=== PATIENT | male | born 1975 | race Caucasian/White ===

== ENCOUNTER 2017-05-10 17:54 | Emergency (ER) | payer MEDICARE, MEDICAID ==
[~2017-05-10] VITALS: Ht 188 cm; Wt 152.9 kg
[~2017-05-10 17:54] MED LIST: BETA15CR15 TOP; CLOT15CR74 TP; PROCHC RC
[2017-05-10 19:15] LABS: BASOPHILS % (AUTO) 0.3 % (0-1); EOSINOPHILS # (AUTO) 0.3 X10'3 (0-0.9); EOSINOPHILS % (AUTO) 2.7 % (0-6); HEMATOCRIT 41.8 % (42.0-52.0); LYMPHOCYTES # (AUTO) 2.5 X10'3 (1.1-4.8); LYMPHOCYTES % (AUTO) 21.8 % (21-51); MEAN CORPUSCULAR HEMOGLOBIN 26.7 PG (27.0-31.0); MEAN CORPUSCULAR HGB CONC 33.5 % (33.0-36.5); MEAN CORPUSCULAR VOLUME 79.8 FL (78-98); MEAN PLATELET VOLUME 8.1 FL (7.4-10.4); MONOCYTES # (AUTO) 0.6 X10'3 (0-0.9); MONOCYTES % (AUTO) 5.3 % (2-12); NEUTROPHILS # (AUTO) 8.1 X10'3 (1.8-7.7); NEUTROPHILS % (AUTO) 69.9 % (42-75); PLATELET COUNT 333 X10'3 (140-440); RED BLOOD COUNT 5.24 X10'6 (4.70-6.10); RED CELL DISTRIBUTION WIDTH 14.6 % (11.5-14.5); WHITE BLOOD COUNT 11.6 X10'3 (4.5-11.0)
[2017-05-10 19:30] LABS: ALANINE AMINOTRANSFERASE 45 U/L (12-78); ALBUMIN 3.6 G/DL (3.4-5.0); ALBUMIN/GLOBULIN RATIO 0.8 (1.1-1.5); ALKALINE PHOSPHATASE 111 IU/L (46-116); ANION GAP 9 (8-16); ASPARTATE AMINO TRANSFERASE 18 U/L (10-37); BILIRUBIN,TOTAL 0.2 MG/DL (0.1-1.0); BLOOD UREA NITROGEN 17 MG/DL (7-18); BUN/CREATININE RATIO 18.5 (5.4-32.0); CHLORIDE 106 MMOL/L (99-107); CREATININE 0.92 MG/DL (0.60-1.10); GLUCOSE 106 MG/DL (70-104); POTASSIUM 3.9 MMOL/L (3.5-5.1); SODIUM 140 MMOL/L (135-145); TOTAL CARBON DIOXIDE 25.4 MMOL/L (24-32); TOTAL PROTEIN 8.4 G/DL (6.4-8.2); eGFR > 90 ML/MIN
[2017-05-10] MEDS ORDERED: POLY17PO10 PO (19:58)
[2017-05-10] MEDS ORDERED: DOCU-28 PO (19:58)
[2017-05-10 20:12] VITALS: BP 130/85
[2017-05-10 20:24] LABS: OCCULT BLOOD STOOL NEGATIVE (Neg)
== END 2017-05-10 20:14 | disposition home or self-care (01) ==
LOC: ER 17:55
DX: K62.89 Other specified diseases of anus and rectum (principal); J45.909 Unspecified asthma, uncomplicated; G89.29 Other chronic pain; F12.10 Cannabis abuse, uncomplicated; Z79.899 Other long term (current) drug therapy; Z59.0 Homelessness
CPT/HCPCS: 36415; 80053; 82272; 85025; 99284

== ENCOUNTER 2017-08-04 22:09 | Emergency (ER) | payer MEDICARE, MEDICAID ==
[~2017-08-04] VITALS: Ht 188 cm; Wt 155.1 kg
[~2017-08-04 22:09] MED LIST changes: +DOCU-28 PO
[2017-08-04 22:28] VITALS: BP 132/108
[2017-08-05] MEDS ORDERED: NAPR-56 PO (00:09)
[2017-08-05] MEDS ORDERED: ketorolac tromethamine 15mg/ml inj. IM ONE (00:10)
[2017-08-05] MEDS ORDERED: orphenadrine citrate 60mg/2ml inj. IM ONE (00:15)
== END 2017-08-05 00:53 | disposition home or self-care (01) ==
LOC: ER 22:10
DX: M79.601 Pain in right arm (principal); J45.909 Unspecified asthma, uncomplicated; F12.10 Cannabis abuse, uncomplicated
CPT/HCPCS: 73080; 96372; 99284; J1885; J2360

== ENCOUNTER 2017-10-21 13:22 | Emergency (ER) | payer MEDICARE, MEDICAID ==
[~2017-10-21] VITALS: Ht 185.4 cm; Wt 130.0 kg
[2017-10-21 13:25] VITALS: BP 195/103
[2017-10-21 16:31] LABS: ALANINE AMINOTRANSFERASE 34 U/L (12-78); ALBUMIN 3.5 G/DL (3.4-5.0); ALBUMIN/GLOBULIN RATIO 0.8 (1.1-1.5); ALKALINE PHOSPHATASE 122 IU/L (46-116); ANION GAP 9 (8-16); ASPARTATE AMINO TRANSFERASE 20 U/L (10-37); BILIRUBIN,TOTAL 0.3 MG/DL (0.1-1.0); BLOOD UREA NITROGEN 14 MG/DL (7-18); BUN/CREATININE RATIO 17.1 (5.4-32.0); CALCIUM 8.6 MG/DL (8.5-10.1); CHLORIDE 104 MMOL/L (99-107); CREATININE 0.82 MG/DL (0.60-1.10); GLUCOSE 101 MG/DL (70-104); POTASSIUM 3.8 MMOL/L (3.5-5.1); SODIUM 138 MMOL/L (135-145); TOTAL CARBON DIOXIDE 25.2 MMOL/L (24-32); eGFR > 90 ML/MIN
[2017-10-21] MEDS ORDERED: IBUP-1984 PO (17:28)
== END 2017-10-21 17:35 | disposition home or self-care (01) ==
LOC: ER 13:23
DX: M54.2 Cervicalgia (principal); J45.909 Unspecified asthma, uncomplicated; G89.29 Other chronic pain; F12.90 Cannabis use, unspecified, uncomplicated; Z59.0 Homelessness
CPT/HCPCS: 36415; 70490; 80053; 99285

== ENCOUNTER 2017-11-24 14:58 | Emergency (ER) | payer MEDICARE, MEDICAID ==
[~2017-11-24] VITALS: Ht 188 cm; Wt 150.0 kg
[2017-11-24 15:23] VITALS: BP 142/96
[2017-11-24] MEDS ORDERED: VAL5T PO (16:17)
[2017-11-24] MEDS ORDERED: METH4TAB3 PO (16:17)
[2017-11-24] MEDS ORDERED: HYDR-3965 PO (16:17)
[2017-11-24] MEDS ORDERED: ONDA4TAB9 SL (16:17)
[2017-11-24] MEDS ORDERED: CYCL-1 PO (16:17)
[2017-11-24] MEDS ORDERED: dexamethasone 4mg tablet PO ONE (16:20)
== END 2017-11-24 16:40 | disposition home or self-care (01) ==
LOC: ER 14:59
DX: S39.012A Strain of muscle, fascia and tendon of lower back, initial encounter (principal); M54.41 Lumbago with sciatica, right side; E66.01 Morbid (severe) obesity due to excess calories; J45.909 Unspecified asthma, uncomplicated; G89.29 Other chronic pain; F12.90 Cannabis use, unspecified, uncomplicated; Z59.0 Homelessness; Z79.899 Other long term (current) drug therapy; X50.1XXA Overexertion from prolonged static or awkward postures, initial encounter; Y93.89 Activity, other specified; Y92.89 Other specified places as the place of occurrence of the external cause; Y99.9 Unspecified external cause status
CPT/HCPCS: 99283; J8540

== ENCOUNTER 2017-12-02 08:15 | Emergency (ER) | payer MEDICARE, MEDICAID ==
[~2017-12-02] VITALS: Ht 188 cm; Wt 160.0 kg
[~2017-12-02 08:15] MED LIST changes: +CYCL-1 PO; +HYDR-3965 PO; +METH4TAB3 PO; +ONDA4TAB9 SL; +VAL5T PO
[2017-12-02] MEDS ORDERED: ondansetron 4mg rapidly disintigrating tab PO ONE (08:50)
[2017-12-02] MEDS ORDERED: HYDROmorphone 1 mg/ml syringe IM ONE (08:50)
[2017-12-02 09:55] LABS: BASOPHILS # (AUTO) 0.2 X10'3 (0-0.2); BASOPHILS % (AUTO) 1.2 % (0-1); EOSINOPHILS # (AUTO) 0.2 X10'3 (0-0.9); EOSINOPHILS % (AUTO) 1.2 % (0-6); HEMATOCRIT 45.2 % (42.0-52.0); HEMOGLOBIN 14.8 g/dl (14.0-17.9); LYMPHOCYTES # (AUTO) 2.3 X10'3 (1.1-4.8); LYMPHOCYTES % (AUTO) 16.9 % (21-51); MEAN CORPUSCULAR HEMOGLOBIN 26.1 PG (27.0-31.0); MEAN CORPUSCULAR HGB CONC 32.9 % (33.0-36.5); MEAN CORPUSCULAR VOLUME 79.6 FL (78-98); MEAN PLATELET VOLUME 8.1 FL (7.4-10.4); MONOCYTES # (AUTO) 0.3 X10'3 (0-0.9); MONOCYTES % (AUTO) 2.3 % (2-12); NEUTROPHILS # (AUTO) 10.4 X10'3 (1.8-7.7); NEUTROPHILS % (AUTO) 78.4 % (42-75); PLATELET COUNT 331 X10'3 (140-440); RED BLOOD COUNT 5.67 X10'6 (4.70-6.10); RED CELL DISTRIBUTION WIDTH 14.3 % (11.5-14.5); WHITE BLOOD COUNT 13.4 X10'3 (4.5-11.0)
[2017-12-02 10:07] VITALS: BP 151/97
[2017-12-02 10:15] LABS: ALANINE AMINOTRANSFERASE 37 U/L (12-78); ALBUMIN 3.3 G/DL (3.4-5.0); ALBUMIN/GLOBULIN RATIO 0.8 (1.1-1.5); ALKALINE PHOSPHATASE 111 IU/L (46-116); ANION GAP 8 (8-16); ASPARTATE AMINO TRANSFERASE 15 U/L (10-37); BILIRUBIN,TOTAL 0.5 MG/DL (0.1-1.0); BLOOD UREA NITROGEN 13 MG/DL (7-18); BUN/CREATININE RATIO 15.7 (5.4-32.0); CALCIUM 8.3 MG/DL (8.5-10.1); CHLORIDE 102 MMOL/L (99-107); CREATININE 0.83 MG/DL (0.60-1.10); GLUCOSE 97 MG/DL (70-104); POTASSIUM 4.1 MMOL/L (3.5-5.1); SODIUM 138 MMOL/L (135-145); TOTAL CARBON DIOXIDE 28.4 MMOL/L (24-32); TOTAL PROTEIN 7.7 G/DL (6.4-8.2); eGFR > 90 ML/MIN
[2017-12-02 10:17] LABS: CLARITY,URINE CLEAR (Clear); COLOR,URINE YELLOW (Yellow); GLUCOSE, URINE NEGATIVE (Neg); KETONES,URINE NEGATIVE (Neg); LEUKOCYTE ESTERASE ,URINE NEGATIVE (Neg); NITRITES, URINE NEGATIVE (Neg); OCCULT BLOOD,URINE NEGATIVE (Neg); PROTEIN,URINE NEGATIVE (Neg); UROBILINOGEN,URINE 0.2 E.U/dL (0.2-1.0)
[2017-12-02 10:24] LABS: UA COLLECTION TYPE CLN CATCH MIDSTREAM
[2017-12-02] MEDS ORDERED: CYCL-1 PO (11:27)
== END 2017-12-02 11:35 | disposition home or self-care (01) ==
LOC: ER 08:15
DX: G89.29 Other chronic pain (principal); M54.5 Low back pain; J45.909 Unspecified asthma, uncomplicated; F12.90 Cannabis use, unspecified, uncomplicated; Z59.0 Homelessness; Z79.899 Other long term (current) drug therapy
CPT/HCPCS: 36415; 80053; 81003; 85025; 96372; 99284; J1170

== ENCOUNTER 2017-12-02 12:05 | Emergency (ER) | payer MEDICARE, MEDICAID ==
[~2017-12-02] VITALS: Ht 188 cm; Wt 157.1 kg
[2017-12-02 12:06] VITALS: BP 139/96
[2017-12-02] MEDS ORDERED: HYDROmorphone 1 mg/ml syringe IM ONE (16:10)
[2017-12-02] MEDS ORDERED: ondansetron 4mg rapidly disintigrating tab PO ONE (16:10)
== END 2017-12-02 17:23 | disposition home or self-care (01) ==
LOC: ER 12:05
DX: G89.29 Other chronic pain (principal); M54.5 Low back pain; J45.909 Unspecified asthma, uncomplicated; F12.90 Cannabis use, unspecified, uncomplicated; Z59.0 Homelessness; Z79.899 Other long term (current) drug therapy
CPT/HCPCS: 72131; 96372; 99284; J1170

== ENCOUNTER 2018-01-07 15:41 | Emergency (ER) | payer MEDICARE, MEDICAID ==
[~2018-01-07] VITALS: Ht 188 cm; Wt 159.0 kg
[~2018-01-07 15:41] MED LIST changes: -HYDR-3965 PO; -ONDA4TAB9 SL; -VAL5T PO
[2018-01-07 17:00] VITALS: BP 178/110
[2018-01-07] MEDS ORDERED: GABA-532 PO (17:09)
== END 2018-01-07 17:26 | disposition home or self-care (01) ==
LOC: ER 15:42
DX: M54.41 Lumbago with sciatica, right side (principal); J45.909 Unspecified asthma, uncomplicated; G89.29 Other chronic pain; F12.90 Cannabis use, unspecified, uncomplicated; Z59.0 Homelessness; Z79.899 Other long term (current) drug therapy
CPT/HCPCS: 93005; 99283

== ENCOUNTER 2018-08-08 11:40 | Emergency (ER) | payer MEDICARE, MEDICAID ==
[~2018-08-08] VITALS: Ht 188 cm; Wt 153.0 kg
[~2018-08-08 11:40] MED LIST changes: +GABA-532 PO
[2018-08-08 11:46] VITALS: BP 182/99
[2018-08-08] MEDS ORDERED: HYDR-4353 PO (13:30)
[2018-08-08] MEDS ORDERED: AMOX500C2 PO (13:30)
== END 2018-08-08 13:41 | disposition home or self-care (01) ==
LOC: ER 11:41
DX: S03.2XXA Dislocation of tooth, initial encounter (principal); K02.9 Dental caries, unspecified; J45.909 Unspecified asthma, uncomplicated; G89.29 Other chronic pain; F12.90 Cannabis use, unspecified, uncomplicated; Z59.0 Homelessness; Z79.2 Long term (current) use of antibiotics; Z79.899 Other long term (current) drug therapy; X58.XXXA Exposure to other specified factors, initial encounter; Y93.89 Activity, other specified; Y92.89 Other specified places as the place of occurrence of the external cause; Y99.8 Other external cause status
CPT/HCPCS: 99283

== ENCOUNTER 2019-01-15 12:38 | Emergency (ER) | payer MEDICARE, MEDICAID ==
[~2019-01-15] VITALS: Ht 188 cm; Wt 160.0 kg
[2019-01-15 12:50] VITALS: BP 179/107
[2019-01-15] MEDS ORDERED: LIDOcaine 5% patch TP ONE (13:40)
[2019-01-15] MEDS ORDERED: ketorolac tromethamine 15mg/ml inj. IM ONE (13:40)
[2019-01-15] MEDS ORDERED: triamcinolone acetonide 40mg/ml inj IM ONE (13:40)
== END 2019-01-15 14:24 | disposition home or self-care (01) ==
LOC: ER 12:38
DX: M54.12 Radiculopathy, cervical region (principal); M25.512 Pain in left shoulder; G89.29 Other chronic pain; J45.909 Unspecified asthma, uncomplicated; F12.90 Cannabis use, unspecified, uncomplicated; Z88.8 Allergy status to other drugs, medicaments and biological substances; Z59.0 Homelessness
CPT/HCPCS: 73030; 96372; 99283; J1885; J3301

== ENCOUNTER 2019-02-17 16:38 | Emergency (ER) | payer MEDICARE, MEDICAID ==
[~2019-02-17] VITALS: Ht 188 cm; Wt 159.1 kg
[2019-02-17 16:44] VITALS: BP 153/101
[2019-02-17] MEDS ORDERED: ibuprofen tablet 400 MG TABLET PO ONE (17:35)
[2019-02-17] MEDS ORDERED: IBUP-1984 PO (18:23)
== END 2019-02-17 18:49 | disposition home or self-care (01) ==
LOC: ER 16:39
DX: M25.562 Pain in left knee (principal); J45.909 Unspecified asthma, uncomplicated; G89.29 Other chronic pain; F10.99 Alcohol use, unspecified with unspecified alcohol-induced disorder; F12.90 Cannabis use, unspecified, uncomplicated; Z59.0 Homelessness; Z79.899 Other long term (current) drug therapy; Y90.9 Presence of alcohol in blood, level not specified
CPT/HCPCS: 73564; 99283

== ENCOUNTER 2019-03-23 16:19 | Emergency (ER) | payer MEDICARE, MEDICAID ==
[~2019-03-23] VITALS: Ht 188 cm; Wt 157.0 kg
[2019-03-23 18:34] VITALS: BP 154/95
== END 2019-03-23 18:20 | disposition home or self-care (01) ==
LOC: ER 16:19
DX: M79.602 Pain in left arm (principal); M79.601 Pain in right arm; J45.909 Unspecified asthma, uncomplicated; G89.29 Other chronic pain; F12.90 Cannabis use, unspecified, uncomplicated; F10.99 Alcohol use, unspecified with unspecified alcohol-induced disorder; Z59.0 Homelessness; Z79.899 Other long term (current) drug therapy; Y90.9 Presence of alcohol in blood, level not specified
CPT/HCPCS: 99281

== ENCOUNTER 2019-05-29 17:19 | Emergency (ER) | payer MEDICARE, MEDICAID ==
[~2019-05-29] VITALS: Ht 188 cm; Wt 165.0 kg
[2019-05-29 17:34] VITALS: BP 166/97
[2019-05-29] MEDS ORDERED: LORA10CA PO (19:40)
[2019-05-29] MEDS ORDERED: FLUT16SP2 BOTHNARES (19:40)
== END 2019-05-29 19:50 | disposition home or self-care (01) ==
LOC: ER 17:19
DX: J34.89 Other specified disorders of nose and nasal sinuses (principal); F12.90 Cannabis use, unspecified, uncomplicated; Z59.0 Homelessness; Z79.899 Other long term (current) drug therapy
CPT/HCPCS: 99282

== ENCOUNTER 2019-08-03 14:19 | Emergency (ER) | payer MEDICARE, MEDICAID ==
[~2019-08-03] VITALS: Ht 188 cm; Wt 159.1 kg
[~2019-08-03 14:19] MED LIST changes: +FLUT16SP2 BOTHNARES; +LORA10CA PO
--- NOTE | 2019-08-03 16:28 | NUR ---
Pt is sitting in bed, playing on his phone. NAD. Respirations unlabored.
[2019-08-03 16:39] VITALS: BP 137/101
== END 2019-08-03 17:38 | disposition home or self-care (01) ==
LOC: ER 14:19
DX: Z13.9 Encounter for screening, unspecified (principal); R06.02 Shortness of breath; J45.909 Unspecified asthma, uncomplicated; G89.29 Other chronic pain; F12.90 Cannabis use, unspecified, uncomplicated; Z72.89 Other problems related to lifestyle; Z59.0 Homelessness; Z88.5 Allergy status to narcotic agent; Z79.2 Long term (current) use of antibiotics; Z79.899 Other long term (current) drug therapy
CPT/HCPCS: 71045; 93005; 99283

== ENCOUNTER 2019-08-14 11:46 | Emergency (ER) | payer MEDICARE, MEDICAID ==
[~2019-08-14] VITALS: Ht 188 cm; Wt 166.4 kg
[2019-08-14 12:18] VITALS: BP 161/102
[2019-08-14] MEDS ORDERED: acetaminophen w/codeine (30MG) #3 tablet PO ONE (14:45)
[2019-08-14] MEDS ORDERED: naproxen sodium 220mg tablet PO SCH (14:45)
[2019-08-14] MEDS ORDERED: NAPR-56 PO (14:56)
== END 2019-08-14 16:00 | disposition home or self-care (01) ==
LOC: ER 11:47
DX: R51 Headache (principal); J45.909 Unspecified asthma, uncomplicated; G89.29 Other chronic pain; F12.90 Cannabis use, unspecified, uncomplicated; Z72.89 Other problems related to lifestyle; Z59.0 Homelessness; Z88.5 Allergy status to narcotic agent; Z79.899 Other long term (current) drug therapy
CPT/HCPCS: 70450; 99284

== ENCOUNTER 2019-09-01 16:37 | Emergency (ER) | payer MEDICARE, MEDICAID ==
[~2019-09-01] VITALS: Ht 188 cm; Wt 159.1 kg
[~2019-09-01 16:37] MED LIST changes: +NAPR-56 PO
[2019-09-01 17:51] LABS: BASOPHILS # (AUTO) 0.1 X10'3 (0-0.2); BASOPHILS % (AUTO) 0.7 % (0-1); EOSINOPHILS # (AUTO) 0.4 X10'3 (0-0.9); EOSINOPHILS % (AUTO) 2.9 % (0-6); HEMATOCRIT 39.1 % (42.0-52.0); HEMOGLOBIN 12.8 g/dl (14.0-17.9); LYMPHOCYTES # (AUTO) 2.5 X10'3 (1.1-4.8); LYMPHOCYTES % (AUTO) 20.1 % (21-51); MEAN CORPUSCULAR HEMOGLOBIN 26.1 PG (27.0-31.0); MEAN CORPUSCULAR HGB CONC 32.7 g/dL (33.0-36.5); MEAN CORPUSCULAR VOLUME 80.1 FL (78-98); MEAN PLATELET VOLUME 7.8 FL (7.4-10.4); MONOCYTES # (AUTO) 0.7 X10'3 (0-0.9); MONOCYTES % (AUTO) 5.5 % (2-12); NEUTROPHILS # (AUTO) 8.6 X10'3 (1.8-7.7); NEUTROPHILS % (AUTO) 70.8 % (42-75); PLATELET COUNT 316 X10'3 (140-440); RED BLOOD COUNT 4.89 X10'6 (4.70-6.10); RED CELL DISTRIBUTION WIDTH 14.6 % (11.5-14.5); WHITE BLOOD COUNT 12.2 X10'3 (4.5-11.0)
[2019-09-01 18:01] LABS: ALANINE AMINOTRANSFERASE 36 U/L (12-78); ALBUMIN 3.3 G/DL (3.4-5.0); ALBUMIN/GLOBULIN RATIO 0.8 (1.1-1.5); ALKALINE PHOSPHATASE 105 IU/L (46-116); ANION GAP 10 (8-16); ASPARTATE AMINO TRANSFERASE 22 U/L (10-37); BILIRUBIN,TOTAL 0.2 MG/DL (0.1-1.0); BLOOD UREA NITROGEN 10 MG/DL (7-18); BUN/CREATININE RATIO 8.6 (5.4-32.0); CALCIUM 8.4 MG/DL (8.5-10.1); CHLORIDE 105 MMOL/L (99-107); CREATININE 1.16 MG/DL (0.60-1.10); GLUCOSE 95 MG/DL (70-104); SODIUM 140 MMOL/L (135-145); TOTAL CARBON DIOXIDE 25.4 MMOL/L (24-32); TOTAL PROTEIN 7.6 G/DL (6.4-8.2); eGFR 69 ML/MIN
[2019-09-01 18:07] LABS: MAGNESIUM 1.9 MG/DL (1.5-2.4)
[2019-09-01 18:36] VITALS: BP 162/90
== END 2019-09-01 18:39 | disposition home or self-care (01) ==
LOC: ER 16:39
DX: R06.02 Shortness of breath (principal); J45.909 Unspecified asthma, uncomplicated; G89.29 Other chronic pain; F12.90 Cannabis use, unspecified, uncomplicated; Z72.89 Other problems related to lifestyle; Z87.891 Personal history of nicotine dependence; Z88.8 Allergy status to other drugs, medicaments and biological substances; Z79.899 Other long term (current) drug therapy
CPT/HCPCS: 36415; 71045; 80053; 83735; 83880; 84484; 85025; 85379; 93005; 99285

== ENCOUNTER 2019-09-17 03:21 | Emergency (ER) | payer MEDICARE, MEDICAID ==
[~2019-09-17] VITALS: Ht 188 cm; Wt 162.0 kg
[~2019-09-17 03:21] MED LIST changes: -NAPR-56 PO
[2019-09-17] MEDS ORDERED: furosemide 10 MG/1 ML 10ml inj IV ONE (03:40)
[2019-09-17] MEDS ORDERED: nitroGLYCERIN 0.4mg SUBLingual tab SL PRN (03:40)
--- NOTE | 2019-09-17 03:50 | NUR ---
GAVE 20MG LASIX- UNABLE TO DOCUMENT ON eMAR D/T K+ STILL BEING RAN AT LAB. VERIFIED DOSE WITH BEE LACKEY.
[2019-09-17 04:01] LABS: BASOPHILS # (AUTO) 0.1 X10'3 (0-0.2); BASOPHILS % (AUTO) 0.5 % (0-1); EOSINOPHILS # (AUTO) 0.4 X10'3 (0-0.9); EOSINOPHILS % (AUTO) 3.3 % (0-6); HEMATOCRIT 40.7 % (42.0-52.0); HEMOGLOBIN 13.1 g/dl (14.0-17.9); LYMPHOCYTES # (AUTO) 2.8 X10'3 (1.1-4.8); LYMPHOCYTES % (AUTO) 23.7 % (21-51); MEAN CORPUSCULAR HGB CONC 32.3 g/dL (33.0-36.5); MEAN CORPUSCULAR VOLUME 80.4 FL (78-98); MEAN PLATELET VOLUME 7.7 FL (7.4-10.4); MONOCYTES # (AUTO) 0.7 X10'3 (0-0.9); NEUTROPHILS % (AUTO) 66.5 % (42-75); PLATELET COUNT 343 X10'3 (140-440); RED BLOOD COUNT 5.06 X10'6 (4.70-6.10); RED CELL DISTRIBUTION WIDTH 14.7 % (11.5-14.5)
[2019-09-17 04:22] LABS: D-DIMER 0.26 MG/L FEU (0-0.50)
[2019-09-17 04:27] LABS: ALANINE AMINOTRANSFERASE 43 U/L (12-78); ALBUMIN 3.2 G/DL (3.4-5.0); ALBUMIN/GLOBULIN RATIO 0.7 (1.1-1.5); ALKALINE PHOSPHATASE 106 IU/L (46-116); ANION GAP 9 (8-16); ASPARTATE AMINO TRANSFERASE 27 U/L (10-37); BILIRUBIN,TOTAL 0.2 MG/DL (0.1-1.0); BLOOD UREA NITROGEN 15 MG/DL (7-18); BUN/CREATININE RATIO 15.3 (5.4-32.0); CALCIUM 8.6 MG/DL (8.5-10.1); CHLORIDE 103 MMOL/L (99-107); CREATININE 0.98 MG/DL (0.60-1.10); GLUCOSE 145 MG/DL (70-104); POTASSIUM 3.8 MMOL/L (3.5-5.1); SODIUM 138 MMOL/L (135-145); TOTAL CARBON DIOXIDE 26.1 MMOL/L (24-32); TOTAL PROTEIN 7.7 G/DL (6.4-8.2); eGFR 84 ML/MIN
--- NOTE | 2019-09-17 04:44 | NUR ---
OHLHALIE FORTUNE UPDATED ON PT'S CURRENT BP OF 127/77 & WBC COUNT OF 12. WILL CONTINUE TO MONITOR
[2019-09-17] MEDS ORDERED: ipratropium/albuterol 3ml nebule NEB ONE (05:10)
[2019-09-17] MEDS ORDERED: ALBU8.5H8 IH (06:28)
[2019-09-17] MEDS ORDERED: DOXY100C43 PO (06:28)
[2019-09-17 06:52] VITALS: BP 121/83
== END 2019-09-17 06:54 | disposition home or self-care (01) ==
LOC: ER 03:21
DX: R06.00 Dyspnea, unspecified (principal); J45.909 Unspecified asthma, uncomplicated; G89.29 Other chronic pain; F17.210 Nicotine dependence, cigarettes, uncomplicated; M79.89 Other specified soft tissue disorders; F12.90 Cannabis use, unspecified, uncomplicated; R06.02 Shortness of breath; Z72.89 Other problems related to lifestyle; Z88.5 Allergy status to narcotic agent; Z79.899 Other long term (current) drug therapy
CPT/HCPCS: 36415; 71045; 80053; 83880; 84484; 85025; 85379; 93005; 94640; 96374; 99285; J1940; 94760

== ENCOUNTER 2019-10-10 17:45 | Emergency (ER) | payer MEDICARE, MEDICAID ==
[~2019-10-10] VITALS: Ht 188 cm; Wt 175.0 kg
[~2019-10-10 17:45] MED LIST changes: +ALBU8.5H8 IH
[2019-10-10] MEDS ORDERED: LORazepam 2 mg/ml vial IV ONE (18:15)
[2019-10-10] MEDS ORDERED: ipratropium/albuterol 3ml nebule NEB ONE (18:15)
[2019-10-10 18:41] LABS: BASOPHILS % (AUTO) 0.2 % (0-1); EOSINOPHILS # (AUTO) 0.4 X10'3 (0-0.9); EOSINOPHILS % (AUTO) 3.2 % (0-6); HEMATOCRIT 40.5 % (42.0-52.0); HEMOGLOBIN 13.2 g/dl (14.0-17.9); LYMPHOCYTES # (AUTO) 2.8 X10'3 (1.1-4.8); LYMPHOCYTES % (AUTO) 24.8 % (21-51); MEAN CORPUSCULAR HGB CONC 32.5 g/dL (33.0-36.5); MEAN PLATELET VOLUME 7.7 FL (7.4-10.4); MONOCYTES # (AUTO) 0.8 X10'3 (0-0.9); MONOCYTES % (AUTO) 6.9 % (2-12); NEUTROPHILS # (AUTO) 7.4 X10'3 (1.8-7.7); NEUTROPHILS % (AUTO) 64.9 % (42-75); PLATELET COUNT 321 X10'3 (140-440); RED BLOOD COUNT 5.06 X10'6 (4.70-6.10); RED CELL DISTRIBUTION WIDTH 14.8 % (11.5-14.5); WHITE BLOOD COUNT 11.3 X10'3 (4.5-11.0)
[2019-10-10 18:57] LABS: ALANINE AMINOTRANSFERASE 35 U/L (12-78); ALBUMIN 3.3 G/DL (3.4-5.0); ALBUMIN/GLOBULIN RATIO 0.7 (1.1-1.5); ALKALINE PHOSPHATASE 111 IU/L (46-116); ANION GAP 12 (8-16); ASPARTATE AMINO TRANSFERASE 21 U/L (10-37); BILIRUBIN,TOTAL 0.2 MG/DL (0.1-1.0); BLOOD UREA NITROGEN 10 MG/DL (7-18); BUN/CREATININE RATIO 11.2 (5.4-32.0); CALCIUM 8.4 MG/DL (8.5-10.1); CHLORIDE 104 MMOL/L (99-107); CREATININE 0.89 MG/DL (0.60-1.10); GLUCOSE 153 MG/DL (70-104); POTASSIUM 3.8 MMOL/L (3.5-5.1); SODIUM 139 MMOL/L (135-145); TOTAL CARBON DIOXIDE 23.5 MMOL/L (24-32); TOTAL PROTEIN 7.8 G/DL (6.4-8.2); eGFR > 90 ML/MIN
[2019-10-10] MEDS: metoprolol tartrate 1mg/ml inj IV ONE ×2 (20:14→20:20)
[2019-10-10 20:16] VITALS: BP_DIAS 83
[2019-10-10 20:20] VITALS: BP_SYST 163
== END 2019-10-10 20:28 | disposition home or self-care (01) ==
LOC: ER 17:46
DX: I10 Essential (primary) hypertension (principal); F41.9 Anxiety disorder, unspecified; R60.0 Localized edema; J45.909 Unspecified asthma, uncomplicated; G89.29 Other chronic pain; F12.90 Cannabis use, unspecified, uncomplicated; Z72.89 Other problems related to lifestyle; Z88.5 Allergy status to narcotic agent; Z79.2 Long term (current) use of antibiotics; Z79.899 Other long term (current) drug therapy
CPT/HCPCS: 36415; 71045; 80053; 83880; 84484; 85025; 93005; 94640; 96374; 99285; J2060; 94760; J3490

== ENCOUNTER 2019-12-03 12:36 | Emergency (ER) | payer MEDICARE, MEDICAID ==
[~2019-12-03] VITALS: Ht 188 cm; Wt 173.0 kg
[2019-12-03 13:02] VITALS: BP 140/83
[2019-12-03] MEDS ORDERED: CLOT45CR32 TOP (14:57)
== END 2019-12-03 15:12 | disposition home or self-care (01) ==
LOC: ER 12:37
DX: B35.6 Tinea cruris (principal); J45.909 Unspecified asthma, uncomplicated; G89.29 Other chronic pain; F12.90 Cannabis use, unspecified, uncomplicated; Z72.89 Other problems related to lifestyle; Z88.5 Allergy status to narcotic agent; Z79.899 Other long term (current) drug therapy
CPT/HCPCS: 99282

== ENCOUNTER 2020-01-05 10:09 | Emergency (ER) | payer MEDICARE, MEDICAID ==
[~2020-01-05] VITALS: Ht 185.4 cm; Wt 172.1 kg
[~2020-01-05 10:09] MED LIST changes: +CLOT45CR32 TOP
[2020-01-05 10:16] VITALS: BP 188/102
[2020-01-05] MEDS ORDERED: CLOT15CR73 TP (10:46)
== END 2020-01-05 11:03 | disposition home or self-care (01) ==
LOC: ER 10:09
DX: B35.6 Tinea cruris (principal); J45.909 Unspecified asthma, uncomplicated; G89.29 Other chronic pain; M54.9 Dorsalgia, unspecified; F12.10 Cannabis abuse, uncomplicated; Z88.5 Allergy status to narcotic agent; Z79.899 Other long term (current) drug therapy
CPT/HCPCS: 99282

== ENCOUNTER 2020-05-15 16:13 | Emergency (ER) | payer MEDICARE, MEDICAID ==
[~2020-05-15] VITALS: Ht 188 cm; Wt 161.2 kg
[~2020-05-15 16:13] MED LIST changes: +CLOT15CR73 TP
[2020-05-15 16:14] VITALS: BP 170/101
[2020-05-15] MEDS ORDERED: AMOX-422 PO (17:42)
[2020-05-15] MEDS ORDERED: IBUP-1984 PO (17:42)
== END 2020-05-15 18:05 | disposition home or self-care (01) ==
LOC: ER 16:13
DX: H66.92 Otitis media, unspecified, left ear (principal); J45.909 Unspecified asthma, uncomplicated; G89.29 Other chronic pain; F12.90 Cannabis use, unspecified, uncomplicated; Z72.89 Other problems related to lifestyle; Z88.5 Allergy status to narcotic agent; Z79.2 Long term (current) use of antibiotics; Z79.899 Other long term (current) drug therapy
CPT/HCPCS: 99283

== ENCOUNTER 2020-05-21 15:27 | Emergency (ER) | payer MEDICARE, MEDICAID ==
[~2020-05-21] VITALS: Ht 188 cm; Wt 172.7 kg
[~2020-05-21 15:27] MED LIST changes: +AMOX-422 PO; +IBUP-1984 PO
[2020-05-21 15:36] VITALS: BP 154/92
[2020-05-21] MEDS ORDERED: FLUT16SP2 BOTHNARES (16:30)
== END 2020-05-21 17:11 | disposition home or self-care (01) ==
LOC: ER 15:28
DX: H92.03 Otalgia, bilateral (principal); J45.909 Unspecified asthma, uncomplicated; G89.29 Other chronic pain; F12.90 Cannabis use, unspecified, uncomplicated; Z72.89 Other problems related to lifestyle; Z88.5 Allergy status to narcotic agent; Z79.2 Long term (current) use of antibiotics; Z79.899 Other long term (current) drug therapy
CPT/HCPCS: 99283

== ENCOUNTER 2020-06-01 16:20 | Emergency (ER) | payer MEDICARE, MEDICAID ==
[~2020-06-01] VITALS: Ht 188 cm; Wt 172.7 kg
[~2020-06-01 16:20] MED LIST changes: -AMOX-422 PO; -IBUP-1984 PO
[2020-06-01 16:30] VITALS: BP 184/91
[2020-06-01] MEDS ORDERED: PENI250T2 PO (18:48)
[2020-06-01] MEDS ORDERED: LIDO20SO16 PO (18:48)
== END 2020-06-01 19:16 | disposition home or self-care (01) ==
LOC: ER 16:21
DX: S02.5XXA Fracture of tooth (traumatic), initial encounter for closed fracture (principal); J45.909 Unspecified asthma, uncomplicated; G89.29 Other chronic pain; F12.90 Cannabis use, unspecified, uncomplicated; Z72.89 Other problems related to lifestyle; Z88.5 Allergy status to narcotic agent; Z79.899 Other long term (current) drug therapy; X58.XXXA Exposure to other specified factors, initial encounter; Y93.89 Activity, other specified; Y92.89 Other specified places as the place of occurrence of the external cause; Y99.8 Other external cause status
CPT/HCPCS: 99283

== ENCOUNTER 2020-09-04 08:25 | Emergency (ER) | payer MEDICARE, MEDICAID ==
[~2020-09-04] VITALS: Ht 188 cm; Wt 178.3 kg
[~2020-09-04 08:25] MED LIST changes: +LIDO20SO16 PO
[2020-09-04 08:34] VITALS: BP 124/76
[2020-09-04 09:52] LABS: BASOPHILS # (AUTO) 0.1 X10'3 (0-0.2); BASOPHILS % (AUTO) 0.6 % (0-1); EOSINOPHILS # (AUTO) 0.3 X10'3 (0-0.9); EOSINOPHILS % (AUTO) 2.6 % (0-6); HEMATOCRIT 40.6 % (42.0-52.0); LYMPHOCYTES # (AUTO) 1.7 X10'3 (1.1-4.8); LYMPHOCYTES % (AUTO) 15.8 % (21-51); MEAN CORPUSCULAR HEMOGLOBIN 25.2 PG (27.0-31.0); MEAN CORPUSCULAR VOLUME 78.6 FL (78-98); MEAN PLATELET VOLUME 8.4 FL (7.4-10.4); MONOCYTES # (AUTO) 0.6 X10'3 (0-0.9); MONOCYTES % (AUTO) 5.3 % (2-12); NEUTROPHILS # (AUTO) 8.1 X10'3 (1.8-7.7); NEUTROPHILS % (AUTO) 75.7 % (42-75); PLATELET COUNT 288 X10'3 (140-440); RED BLOOD COUNT 5.17 X10'6 (4.70-6.10); RED CELL DISTRIBUTION WIDTH 16.1 % (11.5-14.5); WHITE BLOOD COUNT 10.7 X10'3 (4.5-11.0)
[2020-09-04 10:26] LABS: ALANINE AMINOTRANSFERASE 49 U/L (12-78); ALBUMIN 2.9 G/DL (3.4-5.0); ALBUMIN/GLOBULIN RATIO 0.6 (1.1-1.5); ALKALINE PHOSPHATASE 111 IU/L (46-116); ANION GAP 12 (8-16); ASPARTATE AMINO TRANSFERASE 23 U/L (10-37); BILIRUBIN,TOTAL 0.3 MG/DL (0.1-1.0); BLOOD UREA NITROGEN 12 MG/DL (7-18); BUN/CREATININE RATIO 12.4 (5.4-32.0); CALCIUM 8.7 MG/DL (8.5-10.1); CHLORIDE 101 MMOL/L (99-107); CREATININE 0.97 MG/DL (0.60-1.10); GLUCOSE 336 MG/DL (70-104); SODIUM 137 MMOL/L (135-145); TOTAL CARBON DIOXIDE 24.2 MMOL/L (24-32); TOTAL PROTEIN 7.5 G/DL (6.4-8.2); eGFR 85 ML/MIN
[2020-09-04 10:32] LABS: POTASSIUM 3.8 MMOL/L (3.5-5.1)
== END 2020-09-04 10:55 | disposition home or self-care (01) ==
LOC: ER 08:25
DX: R06.02 Shortness of breath (principal); R61 Generalized hyperhidrosis; J45.909 Unspecified asthma, uncomplicated; G89.29 Other chronic pain; F12.90 Cannabis use, unspecified, uncomplicated; Z72.89 Other problems related to lifestyle; Z79.899 Other long term (current) drug therapy; Z88.6 Allergy status to analgesic agent
CPT/HCPCS: 36415; 71045; 80053; 83880; 84484; 85025; 93005; 99285

== ENCOUNTER 2021-01-21 21:14 | Emergency (ER) | payer MEDICARE, MEDICAID ==
[~2021-01-21] VITALS: Ht 188 cm; Wt 180.0 kg
[~2021-01-21 21:14] MED LIST changes: +ALBU8.5H17 IH; -ALBU8.5H8 IH
[2021-01-21] MEDS ORDERED: LIDOcaine Viscous 15ml cup MM ONE (22:35)
[2021-01-21] MEDS ORDERED: mag hydrox/Alum hydrox/simeth 30ml oral suspension PO ONE (22:35)
[2021-01-21 22:55] LABS: BASOPHILS # (AUTO) 0.1 X10'3 (0-0.2); BASOPHILS % (AUTO) 1.1 % (0-1); EOSINOPHILS # (AUTO) 0.4 X10'3 (0-0.9); EOSINOPHILS % (AUTO) 3.2 % (0-6); HEMATOCRIT 38.3 % (42.0-52.0); HEMOGLOBIN 12.4 g/dl (14.0-17.9); LYMPHOCYTES # (AUTO) 2.4 X10'3 (1.1-4.8); LYMPHOCYTES % (AUTO) 20.1 % (21-51); MEAN CORPUSCULAR HEMOGLOBIN 25.1 PG (27.0-31.0); MEAN CORPUSCULAR HGB CONC 32.3 g/dL (33.0-36.5); MEAN CORPUSCULAR VOLUME 77.7 FL (78-98); MEAN PLATELET VOLUME 8.1 FL (7.4-10.4); MONOCYTES # (AUTO) 0.8 X10'3 (0-0.9); MONOCYTES % (AUTO) 6.8 % (2-12); NEUTROPHILS # (AUTO) 8.1 X10'3 (1.8-7.7); NEUTROPHILS % (AUTO) 68.8 % (42-75); PLATELET COUNT 313 X10'3 (140-440); RED BLOOD COUNT 4.93 X10'6 (4.70-6.10); RED CELL DISTRIBUTION WIDTH 16.3 % (11.5-14.5); WHITE BLOOD COUNT 11.7 X10'3 (4.5-11.0)
[2021-01-21 23:13] LABS: ALANINE AMINOTRANSFERASE 60 U/L (12-78); ALBUMIN 3.2 G/DL (3.4-5.0); ALBUMIN/GLOBULIN RATIO 0.7 (1.1-1.5); ALKALINE PHOSPHATASE 113 IU/L (46-116); ANION GAP 8 (8-16); ASPARTATE AMINO TRANSFERASE 25 U/L (10-37); BILIRUBIN,TOTAL 0.2 MG/DL (0.1-1.0); BLOOD UREA NITROGEN 16 MG/DL (7-18); CALCIUM 8.5 MG/DL (8.5-10.1); CHLORIDE 102 MMOL/L (99-107); GLUCOSE 184 MG/DL (70-104); SODIUM 138 MMOL/L (135-145); TOTAL CARBON DIOXIDE 27.6 MMOL/L (24-32); eGFR 82 ML/MIN
[2021-01-21 23:14] LABS: BILIRUBIN,DIRECT < 0.1 MG/DL (0-0.3); LIPASE 82 U/L (73-393)
[2021-01-22] MEDS ORDERED: OMEP40CA21 PO (00:50)
[2021-01-22] MEDS ORDERED: SUCR1TAB PO (00:50)
[2021-01-22 01:01] VITALS: BP 166/101
== END 2021-01-22 01:24 | disposition home or self-care (01) ==
LOC: ER 21:15
DX: R10.84 Generalized abdominal pain (principal); R07.89 Other chest pain; R11.0 Nausea; R06.02 Shortness of breath; G89.29 Other chronic pain; J45.909 Unspecified asthma, uncomplicated; F12.90 Cannabis use, unspecified, uncomplicated; Z72.89 Other problems related to lifestyle; Z86.2 Personal history of diseases of the blood and blood-forming organs and certain disorders involving the immune mechanism; Z88.5 Allergy status to narcotic agent; Z79.899 Other long term (current) drug therapy
CPT/HCPCS: 36415; 71045; 74176; 80048; 80076; 83690; 84484; 85025; 93005; 99285

== ENCOUNTER 2021-05-11 09:39 | Emergency (ER) | payer MEDICARE, MEDICAID ==
[~2021-05-11] VITALS: Ht 188 cm; Wt 180.0 kg
[~2021-05-11 09:39] MED LIST changes: +SUCR1TAB PO
[2021-05-11 10:37] LABS: BASOPHILS # (AUTO) 0.1 X10'3 (0-0.2); BASOPHILS % (AUTO) 0.6 % (0-1); EOSINOPHILS # (AUTO) 0.3 X10'3 (0-0.9); EOSINOPHILS % (AUTO) 2.9 % (0-6); HEMATOCRIT 38.3 % (42.0-52.0); HEMOGLOBIN 12.4 g/dl (14.0-17.9); LYMPHOCYTES # (AUTO) 2.1 X10'3 (1.1-4.8); LYMPHOCYTES % (AUTO) 18.1 % (21-51); MEAN CORPUSCULAR HEMOGLOBIN 25.1 PG (27.0-31.0); MEAN CORPUSCULAR HGB CONC 32.4 g/dL (33.0-36.5); MEAN CORPUSCULAR VOLUME 77.6 FL (78-98); MEAN PLATELET VOLUME 8.2 FL (7.4-10.4); MONOCYTES # (AUTO) 0.7 X10'3 (0-0.9); MONOCYTES % (AUTO) 6.1 % (2-12); NEUTROPHILS # (AUTO) 8.4 X10'3 (1.8-7.7); NEUTROPHILS % (AUTO) 72.3 % (42-75); PLATELET COUNT 324 X10'3 (140-440); RED BLOOD COUNT 4.94 X10'6 (4.70-6.10); WHITE BLOOD COUNT 11.6 X10'3 (4.5-11.0)
[2021-05-11 10:51] LABS: ALANINE AMINOTRANSFERASE 34 U/L (12-78); ALBUMIN 3.2 G/DL (3.4-5.0); ALBUMIN/GLOBULIN RATIO 0.7 (1.1-1.5); ALKALINE PHOSPHATASE 122 IU/L (46-116); ANION GAP 6 (8-16); ASPARTATE AMINO TRANSFERASE 19 U/L (10-37); BILIRUBIN,TOTAL 0.3 MG/DL (0.1-1.0); BLOOD UREA NITROGEN 14 MG/DL (7-18); BUN/CREATININE RATIO 19.4 (5.4-32.0); CALCIUM 8.2 MG/DL (8.5-10.1); CHLORIDE 105 MMOL/L (99-107); CREATININE 0.72 MG/DL (0.60-1.10); GLUCOSE 214 MG/DL (70-104); SODIUM 139 MMOL/L (135-145); TOTAL CARBON DIOXIDE 28.4 MMOL/L (24-32); TOTAL PROTEIN 8.1 G/DL (6.4-8.2); eGFR > 90 ML/MIN
[2021-05-11] MEDS ORDERED: furosemide 10 MG/1 ML 10ml inj IV ONE (11:10)
[2021-05-11 12:30] VITALS: BP 150/94
== END 2021-05-11 12:32 | disposition home or self-care (01) ==
LOC: ER 09:39
DX: R60.0 Localized edema (principal); M62.81 Muscle weakness (generalized); I10 Essential (primary) hypertension; F12.90 Cannabis use, unspecified, uncomplicated; Z98.890 Other specified postprocedural states; Z72.89 Other problems related to lifestyle; Z88.5 Allergy status to narcotic agent
CPT/HCPCS: 36415; 71045; 80053; 83880; 85025; 96374; 99284; J1940

== ENCOUNTER 2022-01-09 12:59 | Emergency (ER) | payer MEDICARE, MEDICAID ==
[~2022-01-09] VITALS: Ht 188 cm; Wt 170.0 kg
[2022-01-09 15:05] LABS: BASOPHILS # (AUTO) 0.1 X10'3 (0-0.2); BASOPHILS % (AUTO) 0.4 % (0-1); EOSINOPHILS # (AUTO) 0.1 X10'3 (0-0.9); EOSINOPHILS % (AUTO) 0.7 % (0-6); HEMATOCRIT 40.7 % (42.0-52.0); HEMOGLOBIN 13.3 g/dl (14.0-17.9); LYMPHOCYTES # (AUTO) 1.6 X10'3 (1.1-4.8); LYMPHOCYTES % (AUTO) 11.1 % (21-51); MEAN CORPUSCULAR HEMOGLOBIN 25.1 PG (27.0-31.0); MEAN CORPUSCULAR HGB CONC 32.8 g/dL (33.0-36.5); MEAN CORPUSCULAR VOLUME 76.7 FL (78-98); MEAN PLATELET VOLUME 7.8 FL (7.4-10.4); MONOCYTES # (AUTO) 1.1 X10'3 (0-0.9); MONOCYTES % (AUTO) 7.3 % (2-12); NEUTROPHILS # (AUTO) 11.6 X10'3 (1.8-7.7); NEUTROPHILS % (AUTO) 80.5 % (42-75); PLATELET COUNT 340 X10'3 (140-440); RED CELL DISTRIBUTION WIDTH 16.8 % (11.5-14.5); WHITE BLOOD COUNT 14.5 X10'3 (4.5-11.0)
[2022-01-09 15:18] LABS: ALANINE AMINOTRANSFERASE 36 U/L (12-78); ALBUMIN 3.6 G/DL (3.4-5.0); ALBUMIN/GLOBULIN RATIO 0.7 (1.1-1.5); ALKALINE PHOSPHATASE 124 IU/L (46-116); AMYLASE 18 U/L (25-115); ANION GAP 9 (8-16); ASPARTATE AMINO TRANSFERASE 23 U/L (10-37); BILIRUBIN,TOTAL 0.6 MG/DL (0.1-1.0); BLOOD UREA NITROGEN 13 MG/DL (7-18); BUN/CREATININE RATIO 9.8 (5.4-32.0); CHLORIDE 103 MMOL/L (99-107); CREATININE 1.33 MG/DL (0.60-1.10); GLUCOSE 111 MG/DL (70-104); LIPASE 53 U/L (73-393); POTASSIUM 3.9 MMOL/L (3.5-5.1); SODIUM 138 MMOL/L (135-145); TOTAL PROTEIN 8.5 G/DL (6.4-8.2); eGFR 58 ML/MIN
--- NOTE | 2022-01-09 21:37 | NUR ---
gave pt urinal and instructed a ua is needed.
[2022-01-09 22:24] LABS: CLARITY,URINE CLEAR (Clear); COLOR,URINE YELLOW (Yellow); GLUCOSE, URINE NEGATIVE (Neg); KETONES,URINE 15 mg/dl (Neg); LEUKOCYTE ESTERASE ,URINE NEGATIVE (Neg); NITRITES, URINE NEGATIVE (Neg); OCCULT BLOOD,URINE TRACE-INTACT (Neg); PROTEIN,URINE NEGATIVE (Neg); UROBILINOGEN,URINE 0.2 E.U/dL (0.2-1.0)
[2022-01-09 22:31] LABS: BACTERIA,URINE FEW /HPF (Neg); RBC,URINE 0-2 /HPF (0-2); UA COLLECTION TYPE VOIDED; WBC,URINE NONE SEEN /HPF (0-4)
[2022-01-09 22:32] LABS: SQUAMOUS EPITHELIAL CELL,UR FEW /LPF (FEW)
[2022-01-09] MEDS ORDERED: ondansetron 4mg rapidly disintigrating tab PO ONE (22:40)
[2022-01-09] MEDS ORDERED: ketorolac trometh inj. 60 MG/2 ML VIAL IM ONE (22:40)
[2022-01-09] MEDS ORDERED: HYDROcodone/acetaminophen 5mg/325mg tablet PO ONE (22:40)
--- NOTE | 2022-01-09 22:45 | NUR ---
Tile Trimmer agrees with Shefali Dejesus, KRISTINE assessment.
[2022-01-09] MEDS ORDERED: ONDA8TAB13 PO (23:25)
[2022-01-09] MEDS ORDERED: HYDR-3965 PO (23:25)
[2022-01-09 23:37] VITALS: BP 191/97
== END 2022-01-09 23:41 | disposition home or self-care (01) ==
LOC: ER 22:18
DX: R10.31 Right lower quadrant pain (principal); R11.2 Nausea with vomiting, unspecified; J45.909 Unspecified asthma, uncomplicated; I10 Essential (primary) hypertension; G89.29 Other chronic pain; M54.9 Dorsalgia, unspecified; F12.10 Cannabis abuse, uncomplicated; Z88.5 Allergy status to narcotic agent; Z79.899 Other long term (current) drug therapy
CPT/HCPCS: 36415; 74176; 80053; 81001; 82150; 83690; 85025; 96372; 99284; J1885

== ENCOUNTER 2022-03-15 11:33 | Emergency (ER) | payer MEDICARE, MEDICAID ==
[~2022-03-15] VITALS: Ht 188 cm; Wt 177.0 kg
[~2022-03-15 11:33] MED LIST changes: -ALBU8.5H17 IH; -BETA15CR15 TOP; +CEPH-585 PO; -CLOT15CR73 TP; -CLOT15CR74 TP; -CLOT45CR32 TOP; -CYCL-1 PO; -DOCU-28 PO; -FLUT16SP2 BOTHNARES; -GABA-532 PO; -LIDO20SO16 PO; -LORA10CA PO; -METH4TAB3 PO; +ONDA8TAB13 PO; -PROCHC RC; -SUCR1TAB PO
[2022-03-15 11:36] VITALS: BP 155/97
[2022-03-15] MEDS ORDERED: SULF1TAB45 PO (12:01)
== END 2022-03-15 12:18 | disposition home or self-care (01) ==
LOC: ER 11:33
DX: I89.0 Lymphedema, not elsewhere classified (principal); T36.1X5A Adverse effect of cephalosporins and other beta-lactam antibiotics, initial encounter; R20.8 Other disturbances of skin sensation; I10 Essential (primary) hypertension; J45.909 Unspecified asthma, uncomplicated; G89.29 Other chronic pain; F12.90 Cannabis use, unspecified, uncomplicated; Z98.890 Other specified postprocedural states; Z72.89 Other problems related to lifestyle; Z88.5 Allergy status to narcotic agent; Z79.2 Long term (current) use of antibiotics; Z79.899 Other long term (current) drug therapy; Y92.89 Other specified places as the place of occurrence of the external cause
CPT/HCPCS: 99283

== ENCOUNTER 2022-04-06 14:52 | Emergency (ER) | payer MEDICARE, MEDICAID ==
[~2022-04-06] VITALS: Ht 188 cm; Wt 172.7 kg
[2022-04-06 15:12] VITALS: BP 181/104
[2022-04-06 15:55] LABS: CLARITY,URINE CLEAR (Clear); COLOR,URINE YELLOW (Yellow); GLUCOSE, URINE NEGATIVE (Neg); KETONES,URINE NEGATIVE (Neg); LEUKOCYTE ESTERASE ,URINE NEGATIVE (Neg); NITRITES, URINE NEGATIVE (Neg); OCCULT BLOOD,URINE NEGATIVE (Neg); PH,URINE 6.5 (4.8-8.0); PROTEIN,URINE NEGATIVE (Neg); UROBILINOGEN,URINE 0.2 E.U/dL (0.2-1.0)
[2022-04-06 16:23] LABS: UA COLLECTION TYPE CLN CATCH MIDSTREAM
== END 2022-04-06 17:40 | disposition home or self-care (01) ==
LOC: ER 14:53
DX: R30.0 Dysuria (principal); I10 Essential (primary) hypertension; J45.909 Unspecified asthma, uncomplicated; G89.29 Other chronic pain; M54.50 Low back pain, unspecified; F12.90 Cannabis use, unspecified, uncomplicated; Z88.5 Allergy status to narcotic agent
CPT/HCPCS: 81003; 99283